=== PATIENT | male | born 1970 | race Caucasian/White ===

== ENCOUNTER 2016-12-24 19:50 | Observation (INO) | payer OTHER ==
[~2016-12-24] VITALS: Ht 182.9 cm; Wt 87.5 kg
[~2016-12-24 19:50] MED LIST: ASPIR-LOW81 MG PO; ASPIR-TRIN325 M1 PO; BACLOFEN20 MG PO; BACTRIM,SEPT1 TABLET PO; CETIRIZINE HCL10 M2 PO; CYCLOBENZAPRINE10 MG PO; DIAZEPAM5 MG PO; ERGOCALCIF50000 UNIT PO; FLEXERIL10 MG PO; GILENYA0.5 MG PO; HYDROCHLOROTH12.5 M3 PO; KEFLEX500 MG PO; LIPITOR40 MG PO; LISINOPRIL10 MG PO; MORPHINE SULFAT60 M1 PO; OXYCODONE HCL10 MG PO; OXYCODONE5 MG PO; OxyCODONE PO; PROVIGIL200 MG PO; Prilosec PO; SOLU-MEDRO1000 MG/1 IV; VITAMIN D31000 UNIT PO; VITAMIN D310000 UNI1 PO; ZANAFLEX4 M1 PO
[2016-12-24 20:04] LABS: HEMATOCRIT 46.1 % (38.0-50.0); MCH 32.3 PG (29.0-34.0); MCHC 35.1 G/DL (30.0-36.0); MCV 91.8 FL (86-99); MEAN PLAT.VOLUME 9.7 uM^3 (9.0-12.4); PLATELET COUNT 243 K/uL (156-360); RBC DIS.WIDTH-CV 11.9 % (11.8-14.6); RBC DIS.WIDTH-SD 40.4 % (39-53); RED BLOOD COUNT 5.02 M/uL (4.00-5.50); WHITE BLOOD COUNT 12.3 K/uL (4.1-10.2)
[2016-12-24 20:18] LABS: CHLORIDE 104 mEq/L (99-109)
[2016-12-24 20:19] LABS: POTASSIUM 3.7 mEq/L (3.7-5.4); SODIUM 140 mEq/L (136-147)
[2016-12-24 20:20] LABS: GLUCOSE 84 mg/dL (70-99)
[2016-12-24 20:22] LABS: ANION GAP 11 MEQ/L (2-14)
[2016-12-24 20:24] LABS: GFR ESTIMATE (CALCULATED) > 59 mL/min/
[2016-12-24 20:25] LABS: UREA NITROGEN (BUN) 11 mg/dL (9-23)
[2016-12-24 20:27] LABS: TROP-I INTERPRETATION NEGATIVE; TROPONIN-I < 0.01 ng/mL (0.0-0.30)
[2016-12-24] MEDS ORDERED: ASPIR 8181 M1 PO (22:36)
[2016-12-24] MEDS ORDERED: NITROSTAT0.4 MG SL (22:38)
[2016-12-24] MEDS ORDERED: ALPRAZOLAM0.5 MG PO (22:38)
[2016-12-25 00:13] LABS: TOTAL BILIRUBIN 0.3 mg/dL (0.0-1.0)
[2016-12-25 00:14] LABS: ALKALINE PHOSPHATASE 186 IU/L (3-129)
[2016-12-25 00:16] LABS: DIRECT BILIRUBIN 0.1 mg/dL (0.0-0.3)
[2016-12-25 00:17] LABS: LIPASE 35 U/L (1.0-51.0)
[2016-12-25 01:37] VITALS: BP 121/81
[2016-12-25 03:33] LABS: TROP-I INTERPRETATION NEGATIVE; TROPONIN-I 0.01 ng/mL (0.0-0.30)
[2016-12-25 04:00] VITALS: BP 115/79
[2016-12-25 09:30] VITALS: BP 132/79
[2016-12-25 10:28] LABS: TROP-I INTERPRETATION NEGATIVE; TROPONIN-I < 0.01 ng/mL (0.0-0.30)
[2016-12-25 12:05] VITALS: BP 127/83
== END 2016-12-25 13:33 | disposition home or self-care (01) ==
LOC: EME 19:50 → EDOF 23:35 → ENRESERV 23:36 → 5WEST 12-25 01:24
PROVIDERS: Hospitalist
DX: R07.89 Other chest pain (principal); I25.10 Atherosclerotic heart disease of native coronary artery without angina pectoris; I25.82 Chronic total occlusion of coronary artery; G35 Multiple sclerosis; I10 Essential (primary) hypertension; E78.5 Hyperlipidemia, unspecified; F17.210 Nicotine dependence, cigarettes, uncomplicated; Z82.49 Family history of ischemic heart disease and other diseases of the circulatory system; I42.8 Other cardiomyopathies; J44.9 Chronic obstructive pulmonary disease, unspecified; D72.829 Elevated white blood cell count, unspecified; G89.29 Other chronic pain; M54.9 Dorsalgia, unspecified; Z79.891 Long term (current) use of opiate analgesic; N31.9 Neuromuscular dysfunction of bladder, unspecified; Z79.82 Long term (current) use of aspirin; Z80.3 Family history of malignant neoplasm of breast; Z82.5 Family history of asthma and other chronic lower respiratory diseases; Z88.8 Allergy status to other drugs, medicaments and biological substances; Z88.0 Allergy status to penicillin; Z88.5 Allergy status to narcotic agent
CPT/HCPCS: 71020; 80048; 80076; 83690; 84484; 85027; 93005; 99281; 99285; G0378; J3010; J7030